=== PATIENT | female | born 2000 | race Caucasian/White ===

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

== ENCOUNTER 2021-08-19 16:20 | Inpatient (IN) ==
[2021-08-19 20:48] LABS: Hematocrit 43 % (35-47); Hemoglobin 14.5 g/dL (12.0-16.0); Mean Corpuscular HGB Conc 34 g/dL (31-36); Mean Corpuscular Hemoglobin 31 pg (27-31); Mean Corpuscular Volume 91 fL (80-97); Mean Platelet Volume 10.2 fL (7.4-10.4); Platelet Count 4 10^3/uL (150-450); Red Blood Count 4.68 10^6 /uL (3.70-4.87); Red Cell Distribution Width 13 % (10-15); White Blood Count 8.5 10^3/uL (3.5-10.8)
[2021-08-19 20:53] LABS: Albumin 4.8 g/dL (3.2-5.2); Albumin/Globulin Ratio 1.3 (1-3); Calcium 9.9 mg/dL (8.6-10.3); Globulin 3.7 g/dL (2-4); Potassium 3.5 mmol/L (3.5-5.0); Total Bilirubin 0.5 mg/dL (0.2-1.0); Total Protein 8.5 g/dL (6.4-8.9); eGFR CKD-EPI 128.7 (>60)
[2021-08-19] MEDS ORDERED: Dexamethasone IV 4 MG/ML VIAL 1 ml VIAL IV SLOW PU ONE (21:07)
[2021-08-19 21:49] LABS: HIV 4th Generation Nonreactive (Nonreactive)
[2021-08-19 22:27] LABS: ABS Basophils 0.1 10^3/ul (0-0.2); ABS Eosinophils 0.1 10^3/ul (0-0.6); ABS Monocytes 0.6 10^3/ul (0-0.8); ABS Neutrophils 5.6 10^3/ul (1.5-7.7); Eosinophil % 1.7 %; Large Platelets Present; Lymphocyte % 23.4 %; Nucleated Red Blood Cells % 0.1
[2021-08-19 22:36] LABS: Hepatitis C Antibody Negative (Negative)
[2021-08-20 00:19] LABS: Activated Partial Thrombo Time 32.2 seconds (26.0-38.0); INR 1.25 (0.86-1.15)
[2021-08-20 06:55] LABS: Hematocrit 42 % (35-47); Hemoglobin 14.3 g/dL (12.0-16.0); Mean Corpuscular HGB Conc 34 g/dL (31-36); Mean Corpuscular Hemoglobin 31 pg (27-31); Mean Corpuscular Volume 92 fL (80-97); Mean Platelet Volume 10.1 fL (7.4-10.4); Platelet Count 4 10^3/uL (150-450); Red Blood Count 4.54 10^6 /uL (3.70-4.87); Red Cell Distribution Width 13 % (10-15); White Blood Count 7.8 10^3/uL (3.5-10.8)
[2021-08-20] MEDS ORDERED: Immune Globulin IV Order (CPOE ENTRY PROTOCOL) IV SCH (10:00)
[2021-08-20] MEDS: [UNRECOGNIZED DRUG - OTHER] IV SCH (10:40)
[2021-08-20] MEDS: PRIVIGEN IV SCH (10:40)
[2021-08-20] MEDS: IMMUNE GLOB IV SCH (10:40)
[2021-08-20 16:03] LABS: ABS Lymphocytes 0.7 10^3/ul (1.0-4.8); ABS Monocytes 1.6 10^3/ul (0-0.8); ABS Neutrophils 12.9 10^3/ul (1.5-7.7); Eosinophil % 0.2 %; Hematocrit 38 % (35-47); Hemoglobin 12.8 g/dL (12.0-16.0); Lymphocyte % 4.6 %; Mean Corpuscular HGB Conc 34 g/dL (31-36); Mean Corpuscular Hemoglobin 31 pg (27-31); Mean Corpuscular Volume 91 fL (80-97); Mean Platelet Volume 11.1 fL (7.4-10.4); Platelet Count 6 10^3/uL (150-450); Red Blood Count 4.15 10^6 /uL (3.70-4.87); Red Cell Distribution Width 13 % (10-15); White Blood Count 15.3 10^3/uL (3.5-10.8)
[2021-08-20] MEDS: Dexamethasone IV 40 MG in NS 0.9% 50 ML 50 ML IVPB SCH (17:37)
[2021-08-20] MEDS ORDERED: Iohexol 300 (CONTRAST) 10 ML SDV IV ONE (21:54)
[2021-08-20] MEDS ORDERED: Morphine 2 MG/ML SYRINGE IV PRN (22:26)
[2021-08-20] MEDS ORDERED: Lactated Ringers 1000 ml BAG 1,000 ML IV ONE (22:27)
[2021-08-20 22:28] LABS: Urine Appearance Clear; Urine Bilirubin Negative (Negative); Urine Blood Negative (Negative); Urine Color Colorless; Urine Glucose Negative (Negative); Urine Ketones Negative (Negative); Urine Nitrite Negative (Negative); Urine Protein Negative (Negative); Urine Urobilinogen Negative (Negative)
[2021-08-20 22:58] LABS: Hematocrit 35 % (35-47); Hemoglobin 11.9 g/dL (12.0-16.0); Mean Corpuscular HGB Conc 34 g/dL (31-36); Mean Corpuscular Hemoglobin 31 pg (27-31); Mean Corpuscular Volume 92 fL (80-97); Mean Platelet Volume 11.4 fL (7.4-10.4); Platelet Count 6 10^3/uL (150-450); Red Blood Count 3.84 10^6 /uL (3.70-4.87); Red Cell Distribution Width 13 % (10-15); White Blood Count 13.5 10^3/uL (3.5-10.8)
[2021-08-20 23:17] LABS: Mean Platelet Volume 11.4 fL (7.4-10.4); Platelet Count 6 10^3/uL (150-450)
[2021-08-21 02:06] LABS: Hematocrit 32 % (35-47); Hemoglobin 11.2 g/dL (12.0-16.0); Platelet Count 5 10^3/uL (150-450)
[2021-08-21 05:46] LABS: ABS Lymphocytes 0.6 10^3/ul (1.0-4.8); ABS Monocytes 0.2 10^3/ul (0-0.8); ABS Neutrophils 8.9 10^3/ul (1.5-7.7); Hematocrit 31 % (35-47); Hemoglobin 10.6 g/dL (12.0-16.0); Lymphocyte % 6.1 %; Mean Corpuscular HGB Conc 35 g/dL (31-36); Mean Corpuscular Hemoglobin 32 pg (27-31); Mean Corpuscular Volume 92 fL (80-97); Mean Platelet Volume 10.6 fL (7.4-10.4); Platelet Count 3 10^3/uL (150-450); Red Blood Count 3.33 10^6 /uL (3.70-4.87); Red Cell Distribution Width 13 % (10-15); White Blood Count 9.7 10^3/uL (3.5-10.8)
[2021-08-21] MEDS ORDERED: romiPLOStim 250 MCG/0.5 ML VIAL SUBCUT ONE (09:00)
[2021-08-21 09:35] LABS: Hematocrit 31 % (35-47); Hemoglobin 10.7 g/dL (12.0-16.0); Mean Corpuscular HGB Conc 35 g/dL (31-36); Mean Corpuscular Hemoglobin 31 pg (27-31); Mean Corpuscular Volume 91 fL (80-97); Mean Platelet Volume 10.5 fL (7.4-10.4); Platelet Count 5 10^3/uL (150-450); Red Blood Count 3.43 10^6 /uL (3.70-4.87); Red Cell Distribution Width 13 % (10-15); White Blood Count 10.9 10^3/uL (3.5-10.8)
[2021-08-21] MEDS: Amphetamine/Dextroam ER 10(NF) 10 mg CAP.ER PO SCH (09:38)
[2021-08-21] MEDS ORDERED: IMMUNE GLOB IV ONE (10:00)
[2021-08-21] MEDS ORDERED: PRIVIGEN IV ONE (10:00)
[2021-08-21] MEDS ORDERED: [UNRECOGNIZED DRUG - OTHER] IV ONE (10:00)
[2021-08-21] MEDS: Dexamethasone IV 40 MG in NS 0.9% 50 ML 50 ML IVPB SCH (10:12)
[2021-08-21] MEDS: IMMUNE GLOB IV SCH (13:22)
[2021-08-21] MEDS: [UNRECOGNIZED DRUG - OTHER] IV SCH (13:22)
[2021-08-21] MEDS: PRIVIGEN IV SCH (13:22)
[2021-08-21] MEDS ORDERED: Morphine 2 MG/ML SYRINGE IV PRN (18:19)
[2021-08-21 20:58] LABS: Hematocrit 28 % (35-47); Hemoglobin 9.5 g/dL (12.0-16.0); Mean Corpuscular HGB Conc 34 g/dL (31-36); Mean Corpuscular Hemoglobin 31 pg (27-31); Mean Corpuscular Volume 91 fL (80-97); Mean Platelet Volume 10.6 fL (7.4-10.4); Platelet Count 9 10^3/uL (150-450); Red Blood Count 3.06 10^6 /uL (3.70-4.87); Red Cell Distribution Width 13 % (10-15); White Blood Count 11.5 10^3/uL (3.5-10.8)
[2021-08-22 06:11] LABS: ABS Lymphocytes 0.8 10^3/ul (1.0-4.8); ABS Monocytes 0.6 10^3/ul (0-0.8); ABS Neutrophils 6.7 10^3/ul (1.5-7.7); Hematocrit 29 % (35-47); Hemoglobin 9.8 g/dL (12.0-16.0); Lymphocyte % 9.7 %; Mean Corpuscular HGB Conc 34 g/dL (31-36); Mean Corpuscular Hemoglobin 31 pg (27-31); Mean Corpuscular Volume 91 fL (80-97); Platelet Count 5 10^3/uL (150-450); Red Blood Count 3.16 10^6 /uL (3.70-4.87); Red Cell Distribution Width 13 % (10-15); White Blood Count 8.2 10^3/uL (3.5-10.8)
[2021-08-22 06:17] LABS: Calcium 8.9 mg/dL (8.6-10.3); Potassium 3.6 mmol/L (3.5-5.0); eGFR CKD-EPI 130.2 (>60)
[2021-08-22 06:18] LABS: INR 1.31 (0.86-1.15)
[2021-08-22] MEDS ORDERED: Dexamethasone IV 4 MG/ML 5 ML VIAL (20 MG) ONE (08:49)
[2021-08-22] MEDS: Amphetamine/Dextroam ER 10(NF) 10 mg CAP.ER PO SCH (09:00)
[2021-08-22] MEDS: Dexamethasone IV 40 MG in NS 0.9% 50 ML 50 ML IVPB SCH (09:00)
[2021-08-22] MEDS ORDERED: riTUXimab-ABBS 10 MG/ML 10 ML VIAL IVPB SCH (11:00)
[2021-08-22] MEDS ORDERED: Meperidine 50 mg/ml SYRINGE 1 ml IV PRN (11:03)
[2021-08-22] MEDS ORDERED: methylPREDNISolone 125 mg 2 ML VIAL IV PRN (11:04)
[2021-08-22] MEDS ORDERED: diPHENhydraMINE IV 50 MG/ML 1 ml VIAL (BENADRYL) IV ONE (11:30)
[2021-08-22] MEDS ORDERED: riTUXimab-ABBS 500 MG, riTUXimab-ABBS 200 MG in NS 0.9% 500 ml BAG 280 ML IVPB SCH (12:00)
[2021-08-22 17:38] LABS: Hematocrit 30 % (35-47); Hemoglobin 10.2 g/dL (12.0-16.0); Mean Corpuscular HGB Conc 34 g/dL (31-36); Mean Corpuscular Hemoglobin 31 pg (27-31); Mean Corpuscular Volume 91 fL (80-97); Mean Platelet Volume 9.6 fL (7.4-10.4); Platelet Count 11 10^3/uL (150-450); Red Blood Count 3.29 10^6 /uL (3.70-4.87); Red Cell Distribution Width 13 % (10-15); White Blood Count 10.1 10^3/uL (3.5-10.8)
[2021-08-22] MEDS: Senna TAB 8.6 mg TAB PO SCH (19:49)
[2021-08-23 06:50] LABS: Hematocrit 30 % (35-47); Hemoglobin 10.5 g/dL (12.0-16.0); Mean Corpuscular HGB Conc 35 g/dL (31-36); Mean Corpuscular Hemoglobin 32 pg (27-31); Mean Corpuscular Volume 90 fL (80-97); Mean Platelet Volume 9.6 fL (7.4-10.4); Platelet Count 8 10^3/uL (150-450); Red Blood Count 3.31 10^6 /uL (3.70-4.87); Red Cell Distribution Width 13 % (10-15)
[2021-08-23] MEDS: Polyethylene Glycol 3350 17 GM PACKET PO SCH (10:02)
[2021-08-23] MEDS: Senna TAB 8.6 mg TAB PO SCH (20:18)
[2021-08-24 07:00] LABS: Hematocrit 32 % (35-47); Hemoglobin 11.4 g/dL (12.0-16.0); Mean Corpuscular HGB Conc 36 g/dL (31-36); Mean Corpuscular Hemoglobin 32 pg (27-31); Mean Corpuscular Volume 90 fL (80-97); Mean Platelet Volume 10.7 fL (7.4-10.4); Platelet Count 16 10^3/uL (150-450); Red Blood Count 3.58 10^6 /uL (3.70-4.87); Red Cell Distribution Width 13 % (10-15); White Blood Count 5.3 10^3/uL (3.5-10.8)
[2021-08-24] MEDS: Polyethylene Glycol 3350 17 GM PACKET PO SCH (09:20)
[2021-08-24] MEDS: Senna TAB 8.6 mg TAB PO SCH (21:00)
[2021-08-25 07:17] LABS: ABS Eosinophils 0.1 10^3/ul (0-0.6); ABS Lymphocytes 1.8 10^3/ul (1.0-4.8); ABS Monocytes 0.8 10^3/ul (0-0.8); ABS Neutrophils 3.1 10^3/ul (1.5-7.7); Eosinophil % 2.3 %; Hematocrit 37 % (35-47); Hemoglobin 12.9 g/dL (12.0-16.0); Lymphocyte % 30.7 %; Mean Corpuscular HGB Conc 35 g/dL (31-36); Mean Corpuscular Hemoglobin 32 pg (27-31); Mean Corpuscular Volume 90 fL (80-97); Mean Platelet Volume 9.4 fL (7.4-10.4); Nucleated Red Blood Cells % 0.1; Platelet Count 18 10^3/uL (150-450); Red Blood Count 4.06 10^6 /uL (3.70-4.87); Red Cell Distribution Width 13 % (10-15); White Blood Count 5.8 10^3/uL (3.5-10.8)
[2021-08-25] MEDS: Polyethylene Glycol 3350 17 GM PACKET PO SCH (08:56)
[2021-08-25 14:14] VITALS: BP 123/66
[2021-08-26 16:03] LABS: GPIIb/IIIa (Cell-1) Negative; GPIIb/IIIa (Cell-2) Negative; GPIV Negative; GPIa/IIa (Cell-1) Negative; GPIa/IIa (Cell-2) Negative; GPIb/IX Negative; Platelet Count x 10(9)/L? 4
== END 2021-08-25 15:00 | disposition home or self-care (01) | DRG 813 ==
LOC: ED 16:20 → SUATTDRO 22:42 → EDHOLD 22:42 → MEDTELE 08-20 01:55
PROVIDERS: ADMIT Hospitalist; ATTEND Internal Medicine

== ENCOUNTER 2024-07-24 18:55 | Inpatient (IN) ==
[2024-07-24] MEDS ORDERED: Lidocaine 1% VIAL 10 MG/ML 30 ML VIAL INJ PRN (20:34)
[2024-07-24] MEDS ORDERED: Ondansetron 4 mg VIAL 2 MG/ML 2 ml VIAL IV PRN (20:38)
[2024-07-24] MEDS ORDERED: Calcium Carb (TUMS) 500 mg CHEW TAB PO PRN (20:39)
[2024-07-24] MEDS: Dinoprostone 10 MG VAG.SUPP VAGINAL ONE (21:01)
[2024-07-24 21:26] LABS: Urine Benzodiazepine Screen None Detected (None Detect); Urine Cannabinoids Screen None Detected (None Detect); Urine Opiates Screen None Detected (None Detect)
[2024-07-25 07:55] LABS: ABS Basophils 0.1 10^3/uL (0.0-0.1); ABS Eosinophils 0.1 10^3/uL (0.0-0.5); ABS Lymphocytes 2.3 10^3/uL (1.0-4.8); ABS Monocytes 1.2 10^3/uL (0.0-0.9); ABS Neutrophils 10.6 10^3/uL (1.5-7.6); ABS Nucleated RBC 0.01 10^3/ul; Eosinophil % 0.7 %; Hematocrit 34.3 % (35-45); Hemoglobin 11.4 g/dL (11.5-14.3); Lymphocyte % 16.3 %; Mean Corpuscular Hemoglobin 28.9 pg (27-33); Mean Corpuscular Hgb Conc 33.2 g/dL (31-36); Mean Platelet Volume 9.8 fL (7.5-11.2); Nucleated Red Blood Cells % 0.1 %/100WBC (0.0-0.8); Platelet Count 210 10^3/uL (150-450); Red Blood Count 3.94 10^6/uL (3.63-4.92); Red Cell Distribution Width 15.2 % (12-17); White Blood Count 14.2 10^3/uL (3.8-11.8)
[2024-07-25] MEDS ORDERED: Influenza Vaccine *TRI* 2024-25* 0.5 ML SYRINGE IM ONE (09:00)
[2024-07-25] MEDS: Oxytocin in LR 20,000 MILLI.UNIT/1,000 ML BAG IV SCH (10:16)
[2024-07-25] MEDS: Lactated Ringers 1000 ml BAG 1,000 ML IV SCH ×2 (10:25→21:11)
[2024-07-25] MEDS: Nalbuphine 10 MG/ML 1 ML VIAL IV PRN (13:29)
[2024-07-25] MEDS ORDERED: Phenylephrine 40 mcg/mL 10mL (400mcg) SYRINGE IV PUSH PRN ×2 (15:17)
[2024-07-25] MEDS: OBEPIDURAL (200 ML) 200 ML EPIDURAL SCH (15:48)
[2024-07-25 17:03] LABS: Urine Appearance Clear; Urine Bilirubin Negative (Negative); Urine Blood Negative (Negative); Urine Color Light-Yellow; Urine Glucose Negative (Negative); Urine Ketones Negative (Negative); Urine Nitrite Negative (Negative); Urine Protein Trace (Negative); Urine Specific Gravity 1.024 (1.002-1.030); Urine Urobilinogen Negative (Negative); Urine pH 6.5 (5.0-8.0)
[2024-07-25] MEDS: OBEPIDURAL (200 ML) 200 ML EPIDURAL ONE (21:12)
[2024-07-25] MEDS: Lidocaine 1.5% EPI 1:200,000 30 ML SDV ONE (21:12)
[2024-07-26] MEDS ORDERED: Lidocaine 2% PF 10 ML AMP (OR) ONE (09:41)
[2024-07-26] MEDS ORDERED: Ondansetron 4 mg VIAL 2 MG/ML 2 ml VIAL ONE (09:41)
[2024-07-26] MEDS ORDERED: Morphine PF AMP (0.5MG/ML) 5 MG/10 ML AMP ONE (09:42)
[2024-07-26] MEDS: Sodium Citrate/Citric Acid LIQ 15 ML UDC PO PRN (09:45)
[2024-07-26] MEDS ORDERED: Oxytocin 10 UNITS/ML 1 ML VIAL ONE ×2 (09:58→11:13)
[2024-07-26] MEDS: ceFOXitin 2 GM IVPREMIX 2 GM/50 ML BAG IVPB ONE (09:59)
[2024-07-26] MEDS ORDERED: fentaNYL 100 mcg/2 ml 50 MCG/ML VIAL ONE (10:33)
[2024-07-26] MEDS ORDERED: Phenylephrine IV 10 MG/ML 1 ml VIAL ONE (10:42)
[2024-07-26] MEDS ORDERED: Dexamethasone IV 4 MG/ML VIAL 1 ml VIAL ONE (10:49)
[2024-07-26] MEDS ORDERED: Succinylcholine 200 mg VIAL 20 mg/ml 10 ml VIAL (200 mg) ONE (11:03)
[2024-07-26] MEDS ORDERED: Phenylephrine 40 mcg/mL 10mL (400mcg) SYRINGE ONE (11:04)
[2024-07-26] MEDS ORDERED: Propofol 10 MG/ML 20 ML BTL ONE (11:13)
[2024-07-26] MEDS ORDERED: Bupivacaine 0.5% SDV PF 30ML VIAL ONE (11:14)
[2024-07-26] MEDS ORDERED: Acetaminophen IV 1 GM/100ML 1,000 MG/100 ML BAG IV PRN (11:20)
[2024-07-26] MEDS ORDERED: Ondansetron 4 mg VIAL 2 MG/ML 2 ml VIAL IV PRN (11:20)
[2024-07-26] MEDS ORDERED: Naloxone 0.4 mg VIAL 0.4 mg/ml 1 ml VIAL IV PUSH PRN (11:20)
[2024-07-26] MEDS ORDERED: Metoclopramide 5 MG/ML VIAL (10 mg) IV PRN (11:20)
[2024-07-26] MEDS ORDERED: Witch Hazel PAD JAR TOPICAL PRN (13:08)
[2024-07-26] MEDS ORDERED: Glycerin ADULT 2.4 gm SUPP PR PRN (13:08)
[2024-07-26] MEDS: Oxytocin in LR 20,000 MILLI.UNIT/1,000 ML BAG IV SCH (13:33)
[2024-07-26] MEDS ORDERED: Lactated Ringers 1000 ml BAG 1,000 ML IV SCH (14:00)
[2024-07-26] MEDS: Phenylephrine 40 mcg/mL 10mL (400mcg) SYRINGE ONE (20:32)
[2024-07-26] MEDS: miSOPROStol 100 mcg TAB VAGINAL ONE (20:32)
[2024-07-26] MEDS: Lactated Ringers 1000 ml BAG 1,000 ML IV ONE ×2 (20:32→20:34)
[2024-07-26] MEDS: Buffered Lidocaine 1% SYRIN 1 ml INTRADERM ONE (20:33)
[2024-07-27 07:33] LABS: ABS Lymphocytes 1.6 10^3/uL (1.0-4.8); ABS Neutrophils 14.9 10^3/uL (1.5-7.6); Eosinophil % 0.1 %; Hematocrit 29.4 % (35-45); Hemoglobin 9.6 g/dL (11.5-14.3); Mean Corpuscular Hemoglobin 28.7 pg (27-33); Mean Corpuscular Hgb Conc 32.7 g/dL (31-36); Mean Corpuscular Volume 87.8 fL (80-97); Mean Platelet Volume 9.9 fL (7.5-11.2); Platelet Count 164 10^3/uL (150-450); Red Blood Count 3.35 10^6/uL (3.63-4.92); Red Cell Distribution Width 15.5 % (12-17); White Blood Count 17.5 10^3/uL (3.8-11.8)
[2024-07-29 09:35] VITALS: BP 137/79
== END 2024-07-29 15:40 | disposition home or self-care (01) | DRG 787 ==
LOC: MCHOBOUT 18:55 → MCHOB 20:19
PROVIDERS: ATTEND Obstetrics & Gynecology